=== PATIENT | male | born 1965 | race Caucasian/White ===

== ENCOUNTER 2018-06-03 14:32 | Inpatient (IN) | payer MEDICAID ==
[~2018-06-03] VITALS: Ht 175.3 cm; Wt 74.8 kg
[2018-06-03] VITALS (8 sets, daily range): BP systolic 128–175; BP diastolic 70–112; BMI 24.4
--- NOTE | ~2018-06-03 | EC ---
PATIENT:GARRY HUSAIN DATE OF SERVICE: 06/03/18 SEX: M MEDICAL RECORD: [id number] DATE OF : 63 LOCATION:[facility] AGE OF PATIENT: 52 ADMISSION DATE: 06/03/18 REFERRING PHYSICIAN: INTERPRETING PHYSICIAN: DARLENE MADRIGAL MD ECHOCARDIOGRAM REPORT ECHO CHARGES 4 ECHO COMPLETE Date: 06/04/18 CLINICAL DIAGNOSIS: R/O VEGITATION ECHOCARDIOGRAPHIC MEASUREMENTS (adult normal given) AC root (d.<3.7cm) 2.4 cm LV Septum d (<1.2 cm> 1.0 cm Valve Excursion 1.0 cm LV Septum (systole) 1.4 cm Left Atria (s.<4.0cm> 2.9 cm LVPW d(<1.2cm) 0.9 cm RV (d.<2.3cm) 2.3 cm LVPW (sytole) 1.4 cm LV diastole(<5.6CM) 4.7 cm MV E-F(>70mm/sec) cm LV systole 3.6 cm LVOT Diameter 1.7 cm MV exc.(>10mm) cm Est.ejection fraction (50-75%) % DOPPLER: LVIT cm/sec A 91 cm/sec E 91 cm/sec LA cm/sec RVSP 16.1 mmHg LVOT 117 cm/sec AOP1/2T m/s Asc. Ao 143 cm/sec RVOT 62 cm/sec RA cm/sec PA 77 cm/sec AV Gradient Peak 8.2 mmHg AV Mean 4.8 mmHg AV Area 1.7 cm MV Gradient Peak 4.0 mmHg MV Mean 1.8 mmHg MV Area cm COMMENTS: Medium Cycle Salesperson: Renzo LUBIN Pipelines Manager: 1 Dr. Madrigal TAPE# PACS Pericardial Effusion N DATE OF SERVICE: 06/04/2018 FINDINGS: 1. Left ventricular chamber size is within normal limits. Left ventricular systolic function is normal. Overall ejection fraction is estimated at 55%. 2. Left atrium, right atrium, and right ventricular chamber sizes are within normal limit. 3. Valvular structures have normal structure and motion. 4. Doppler interrogation reveals trace tricuspid regurgitation. No other valvular insufficiency or stenosis. ECHOCARDIOGRAM REPORT [id number] GARRY HUSAIN 5. No evidence of pericardial effusion or left ventricular thrombus. 6. No evidence of vegetative endocarditis. TRANSINT:[id number] Voice Confirmation ID: [id number] DOCUMENT ID: [id number] DARLENE MADRIGAL MD CC: [id number] DICTATION DATE: 06/04/18 1706 GLASS TECHNICIAN/INSTALLER: 06/04/18 1908 ADM IN [place] [id number] [place] [id number]
[2018-06-03 15:13] LABS: HEMATOCRIT 48.6 % (42.0-54.0); HEMOGLOBIN 16.8 g/dL (13.5-17.5); MCH 29.7 pg (26.0-34.0); MCHC 34.6 g/dL (31.0-37.0); MEAN PLATELET VOLUME 9.4 fL (7.4-10.4); PLATELET COUNT 424 10x3/uL (130-400); RBC 5.65 10x6/uL (4.20-6.10); RDW 13.2 % (11.5-14.5); WBC 27.8 10x3/uL (4.8-10.8)
[2018-06-03 15:34] LABS: ALBUMIN 4.2 g/dL (3.4-5.0); ANION GAP 14.3 mmol/L (8-16); BILIRUBIN - TOTAL 0.51 mg/dL (0.2-1.3); CALCIUM 9.9 mg/dL (8.5-10.1); CARBON DIOXIDE 31.3 mmol/L (21.0-32.0); CREATININE - SERUM 1.1 mg/dL (0.6-1.3); POTASSIUM - SERUM 3.6 mmol/L (3.5-5.1); PROTEIN - SERUM 8.8 g/dL (6.4-8.2)
[2018-06-03 15:57] LABS: INR 0.97 (0.85-1.17); PROTIME 12.4 SECONDS (11.6-15.0)
[2018-06-03 16:21] LABS: LYMPHOCYTES 3 % (15-50); MONOCYTES 5 % (2-11); NEUTROPHILS 92 % (40-80)
[2018-06-03 16:22] LABS: PLATELET ESTIMATE INCREASED; TARGET CELLS OCC; TEAR DROP CELLS OCC
[2018-06-03 16:23] LABS: STOMATOCYTES OCC
[2018-06-03 18:00] LABS: APPEARANCE CLEAR (CLEAR); BILIRUBIN NEGATIVE (NEGATIVE); COLOR STRAW (YELLOW); GLUCOSE 100 mg/dL (NEGATIVE); KETONE SMALL mg/dL (NEGATIVE); NITRITE NEGATIVE (NEGATIVE); PROTEIN NEGATIVE (NEGATIVE); UROBILINOGEN NORMAL (NORMAL)
[2018-06-03 18:02] LABS: BACTERIA FEW /hpf (NONE SEEN); RED CELLS - URINE OCC /hpf (0-5); WHITE CELLS - URINE OCC /hpf (0-5)
--- NOTE | 2018-06-03 20:22 | NUR ---
500CC OF URINE EMPTIED FROM URINAL.
--- NOTE | 2018-06-03 21:45 | NUR ---
RECEIVED TO FLOOR, ASSUMED CARE, ORIENTED TO ROOM, CALL LIGHT IN REACH, DENIES NEEDS, BED LOWEST POSITION, WILL CONTINUE TO MONITOR
[2018-06-04] VITALS: BP 154/99
[2018-06-04 04:00] VITALS: BP 151/96
[2018-06-04 06:49] LABS: CALC OSMOLALITY 277 mosm/kg (275-300); CALCIUM 8.2 mg/dL (8.5-10.1); CARBON DIOXIDE 25.5 mmol/L (21.0-32.0); CHLORIDE - SERUM 104 mmol/L (98-107); GLUCOSE 109 mg/dL (74-106); POTASSIUM - SERUM 3.7 mmol/L (3.5-5.1); SODIUM 139 mmol/L (136-145); eGFR NON AFRICAN AMERICAN 83 mL/min (90-120)
[2018-06-04 06:50] LABS: UREA NITROGEN 9 mg/dL (7-18)
[2018-06-04 07:03] LABS: BASOPHILS 0.2 % (0-2); EOSINOPHILS 0.3 % (0-7); HEMATOCRIT 42.6 % (42.0-54.0); HEMOGLOBIN 14.4 g/dL (13.5-17.5); IMMATURE GRANULOCYTES 0.3 % (0-5); LYMPHOCYTES 11.2 % (15-50); MCH 29.4 pg (26.0-34.0); MCHC 33.8 g/dL (31.0-37.0); MCV 86.9 fL (80.0-100.0); MEAN PLATELET VOLUME 9.9 fL (7.4-10.4); MONOCYTES 10.6 % (2-11); NEUTROPHILS 77.4 % (40-80); PLATELET COUNT 389 10x3/uL (130-400); RDW 13.3 % (11.5-14.5); WBC 20.7 10x3/uL (4.8-10.8)
--- NOTE | 2018-06-04 07:03 | NUR ---
PT COMPLAINED OF PRESSURE/TIGHTNESS, DIFFICULTY SWALLOWING ER TOLD HIM IT WAS FROM VOMITIING, BP 136/92, O2 100% RA, TELEMETRY 109 ST
--- NOTE | 2018-06-04 07:25 | NUR ---
PT RESTING IN BED, EYES CLOSED. RESPIRATIONS EVEN AND UNLABORED. AROUSES TO VOICE. AT BEDSIDE. PT ALERT AND ORIENTED. NO C/O PAIN. NO S/S OF ACUTE DISTRESS NOTED. UP AD YAKELIN. IV TO LEFT FOREARM, NS INFUSING @ 200 ML/HR. SITE PATENT WITHOUT REDNESS OR SWELLING. PT DENIES ANYTHING FURTHER AT THIS TIME. CALL LIGHT IN REACH. WILL CONTINUE TO MONITOR.
[2018-06-04 09:20] VITALS: BP 144/94
[2018-06-04 13:03] LABS: CKMB 0.6 U/L (0.0-3.6); CREATINE KINASE 109 UL (21-232)
[2018-06-04 13:06] LABS: TROPONIN-I < 0.017 ng/mL (0.000-0.060)
--- NOTE | 2018-06-04 15:30 | NUR ---
I have reviewed this patient and I concur with the Shift Assessment completed by the Licensed Practical Nurse today this shift.
[2018-06-04 15:33] VITALS: Ht 175.3 cm; Wt 74.8 kg
[2018-06-04 17:02] LABS: HEMOGLOBIN 13.5 g/dL (13.5-17.5)
[2018-06-04 17:10] VITALS: BP 154/93
--- NOTE | 2018-06-04 18:43 | NUR ---
PT RESTING IN BED, EYES OPEN. NO C/O PAIN. NO S/S OF ACUTE DISTRESS NOTED. PT DENIES ANYTHING FURTHER AT THIS TIME. CALL LIGHT IN REACH. WILL CONTINUE TO MONITOR.
[2018-06-04 19:03] LABS: CKMB 0.8 U/L (0.0-3.6); CREATINE KINASE 109 UL (21-232); TROPONIN-I < 0.017 ng/mL (0.000-0.060)
[2018-06-04 20:00] VITALS: BP 136/73
--- NOTE | 2018-06-04 20:30 | NUR ---
LYING IN BED. ALERT AND ORIENTED X4. RESP EVEN AND NONLABORED. BBS CTA. STILL HAVING EPIGASTRIC PAIN. REPORTS HE HAS BEEN HAVING DIFF SWALLOWING BUT IT HAS IMPROVED. STATES HE THINKS ITS RELATED TO THE VOMITING THAT HE HAD. NO N/V AT THIS TIME. TELEMETRY SHOWS SR WITH RATE OF 69. ABD IS DISTENDED AND FIRM. BS PRESENT X4 QUADS. BANANA BAG INFUSING @ 125 ML/HR. PROTONIX DRIP INFUSING @ 10 ML/HR IN LT AC WITHOUT DIFF. AT BEDSIDE. CL IN REACH.
[2018-06-05] VITALS: BP 144/92
--- NOTE | 2018-06-05 00:05 | NUR ---
REMINDED THAT HE IS TO BE NPO AFTER MIDNIGHT AND HE VERBALIZED UNDERSTANDING. NO VOMITING SO FAR THIS SHIFT. NO DISTRESS. CL IN REACH.
[2018-06-05 00:25] LABS: HEMOGLOBIN 12.6 g/dL (13.5-17.5)
[2018-06-05 00:44] LABS: CKMB 0.3 U/L (0.0-3.6); CREATINE KINASE 83 UL (21-232)
[2018-06-05 00:45] LABS: TROPONIN-I < 0.017 ng/mL (0.000-0.060)
[2018-06-05 04:00] VITALS: BP 130/79
--- NOTE | 2018-06-05 04:08 | NUR ---
LYING ON LT SIDE WITH EYES CLOSED. RESP EVEN AND NONLABORED. NO DISTRESS. CL IN REACH.
[2018-06-05 07:33] LABS: ALKALINE PHOSPHATASE 78 U/L (46-116); BILIRUBIN - TOTAL 0.47 mg/dL (0.2-1.3); CALC OSMOLALITY 275 mosm/kg (275-300); CALCIUM 8.1 mg/dL (8.5-10.1); CARBON DIOXIDE 26.9 mmol/L (21.0-32.0); CHLORIDE - SERUM 106 mmol/L (98-107); CREATININE - SERUM 0.9 mg/dL (0.6-1.3); GLUCOSE 104 mg/dL (74-106); POTASSIUM - SERUM 3.6 mmol/L (3.5-5.1); SODIUM 139 mmol/L (136-145); UREA NITROGEN 7 mg/dL (7-18); eGFR NON AFRICAN AMERICAN > 90 mL/min (90-120)
[2018-06-05 07:34] LABS: ALBUMIN 2.7 g/dL (3.4-5.0); ALT (SGPT) 17 U/L (10-68); PROTEIN - SERUM 6.3 g/dL (6.4-8.2)
[2018-06-05 07:35] LABS: BASOPHILS 0.3 % (0-2); EOSINOPHILS 1.9 % (0-7); HEMATOCRIT 38.8 % (42.0-54.0); HEMOGLOBIN 12.9 g/dL (13.5-17.5); IMMATURE GRANULOCYTES 0.2 % (0-5); LYMPHOCYTES 20.3 % (15-50); MCH 29.1 pg (26.0-34.0); MCHC 33.2 g/dL (31.0-37.0); MCV 87.6 fL (80.0-100.0); MEAN PLATELET VOLUME 9.7 fL (7.4-10.4); MONOCYTES 9.4 % (2-11); NEUTROPHILS 67.9 % (40-80); PLATELET COUNT 330 10x3/uL (130-400); RBC 4.43 10x6/uL (4.20-6.10); RDW 13.3 % (11.5-14.5)
[2018-06-05 07:49] LABS: WBC 12.3 10x3/uL (4.8-10.8)
--- NOTE | 2018-06-05 08:15 | NUR ---
PT RESTING IN BED WITH EYES OPEN CALL LIGHT IN REACH WILL MONITER
[2018-06-05 14:08] VITALS: BP 119/73
[2018-06-05] MEDS ORDERED: PROTONIX40 MG PO (15:55)
[2018-06-05] MEDS ORDERED: CARAFATE1 G PO (15:56)
--- NOTE | 2018-06-05 16:43 | NUR ---
PT RESTING IN BED WITH EYES OPEN CALL LIGHT IN REACH NO PROBLEMS WILL MONITER
--- NOTE | 2018-06-05 18:09 | NUR ---
PT RESTING IN BED WITH EYES OPEN CALL LIGHT IN REACH NO PROBLEMS WILL MONITER
--- NOTE | 2018-06-05 18:16 | NUR ---
PT RESTING IN BED WITH EYES OPEN CALL LIGHT IN REACH NO PROBLEMS WILL MONITER
[2018-06-05 18:36] VITALS: BP 135/92
--- NOTE | 2018-06-05 19:00 | NUR ---
PT DISCHARGED TO HOME VIA WHEELCHAIR WITH DISCHARGE SUMMARY REVIEWED WITH PT NO QUESTIONS WILL MONITER
--- NOTE | 2018-06-07 11:57 | MORECARE ---
CASE MANAGEMENT DISCHARGE SUMMARY PATIENT: GARRY HUSAIN UNIT: [id number] ADM DATE: 06/03/18 AGE: 52 : 63 SEX: M ROOM/BED: D.2235 AUTHOR: SHAI STEELE PHYSICIAN: REFERRING PHYSICIAN: MINGO DICKENS MD DATE OF SERVICE: 06/07/18 Discharge Plan Patient Name: GARRY HUSAIN Facility: [facility]:[place] : 1965 Planned Disposition: Anticipated Discharge Date: Discharge Date: 06/05/2018 Expected LOS: 0 Initial Reviewer: [email or web address] Initial Review Date: 06/07/2018 Generated: 06/07/18 12:57 pm Patient Name: GARRY HUSAIN Page [id number] at 1157 All edits/amendments must be made on the electronic document DICTATION DATE: 06/07/[address] SQL DEVELOPER: [email or web address] 06/07/18 1157 RPT#: [id number] DC DATE:06/05/18 STATUS: DIS IN [facility] [address] [place] [address] END OF REPORT
== END 2018-06-05 19:05 | disposition home or self-care (01) | DRG 381 ==
LOC: D.ER 14:32 → D.EDHOLD 19:20 → D.MS 19:20
PROVIDERS: Family Medicine; Internal Medicine Gastroenterology; ADMIT Internal Medicine Nephrology; ATTEND Internal Medicine Nephrology
PROC: 0DB68ZX Excision of Stomach, Via Natural or Artificial Opening Endoscopic, Diagnostic (ICD-10-PCS; principal; 2018-06-05 06:38)
DX: K22.11 Ulcer of esophagus with bleeding (principal); F17.213 Nicotine dependence, cigarettes, with withdrawal; D72.829 Elevated white blood cell count, unspecified; K92.0 Hematemesis; E86.0 Dehydration; K44.9 Diaphragmatic hernia without obstruction or gangrene; K29.70 Gastritis, unspecified, without bleeding